=== PATIENT | male | born 1960 | race Caucasian/White ===

== ENCOUNTER 2020-12-16 05:49 | Day surgery (SDC) | payer BC ==
[2020-12-14 17:01] VITALS: BMI 29.3
[2020-12-16 12:50] VITALS: TEMP 97.1
[2020-12-16 13:32] VITALS: BP 108/58; PULSE 62
== END 2020-12-16 13:50 | disposition home or self-care (01) ==
LOC: JASU-ENDO 05:49
PROVIDERS: ATTEND Internal Medicine Gastroenterology
PROC: 0DBC8ZX Excision of Ileocecal Valve, Via Natural or Artificial Opening Endoscopic, Diagnostic (ICD-10-PCS; 2020-12-16)
PROC: 0DBL8ZX Excision of Transverse Colon, Via Natural or Artificial Opening Endoscopic, Diagnostic (ICD-10-PCS; principal; 2020-12-16 12:10)
DX: Z12.11 Encounter for screening for malignant neoplasm of colon (principal); D12.0 Benign neoplasm of cecum; D12.3 Benign neoplasm of transverse colon; K63.3 Ulcer of intestine; K64.8 Other hemorrhoids; Z86.010 Personal history of colon polyps
CPT/HCPCS: 88305-TC